=== PATIENT | female | born 1945 | race Caucasian/White ===

== ENCOUNTER 2018-11-18 09:11 | Emergency (ER) | payer MEDICARE, OTHER ==
[~2018-11-18] VITALS: Ht 165.1 cm; Wt 74.0 kg
[2018-11-18 09:17] VITALS: BP 190/79
[2018-11-18] MEDS ORDERED: DOXYCYCLINE 100MG CAPSULE PO STA (12:04)
[2018-11-18] MEDS ORDERED: dexamethasone sod phosphate 10mg/ml inj PO STA (12:04)
[2018-11-18] MEDS ORDERED: DOXY100C43 PO (12:05)
== END 2018-11-18 12:35 | disposition home or self-care (01) ==
LOC: ER 09:12
DX: R22.0 Localized swelling, mass and lump, head (principal); Z79.899 Other long term (current) drug therapy
CPT/HCPCS: 99283; J1100